=== PATIENT | male | born 1945 | race Caucasian/White ===

== ENCOUNTER → 2017-08-30 | Outpatient (CLI) | payer MEDICARE, BC | LOC: LAB 14:01 | DX: Z12.11 Encounter for screening for malignant neoplasm of colon (principal); Z72.0 Tobacco use ==

== ENCOUNTER → 2017-09-04 | Outpatient (CLI) | payer MEDICARE, BC | LOC: LAB 09:11 | DX: Z12.11 Encounter for screening for malignant neoplasm of colon (principal) ==

== ENCOUNTER → 2017-09-18 | Day surgery (SDC) | payer MEDICARE, BC | LOC: MSO 08:45 | DX: K21.9 Gastro-esophageal reflux disease without esophagitis (principal); K22.2 Esophageal obstruction; K44.9 Diaphragmatic hernia without obstruction or gangrene; K29.80 Duodenitis without bleeding; F17.210 Nicotine dependence, cigarettes, uncomplicated | CPT/HCPCS: 00740; A4649; C1726; J3010; J7120 ==

== ENCOUNTER 2018-01-04 10:50 | Emergency (ER) | payer MEDICARE, BC ==
[~2018-01-04] VITALS: Ht 188 cm; Wt 77.6 kg
[2018-01-04] MEDS ORDERED: GOOD SENSE ASPI81 M1 PO (10:59)
[2018-01-04] MEDS ORDERED: PROAIR HFA0.09 MG/AC IH (11:00)
[2018-01-04] MEDS ORDERED: PRILOSEC 20MG20 MG PO (11:10)
[2018-01-04 11:45] LABS: HEMATOCRIT 50.3 % (42.0-52.0); HEMOGLOBIN 16.3 g/dL (13.5-18.0); MEAN CELL VOLUME 96 fl (78-100); MEAN CORPUSCULAR HEMOGLOBIN 31 pg (27-31); MEAN CORPUSCULAR HGB CONC 32 g/dL (33-37); MEAN PLATELET VOLUME 9.4 fl (7.4-10.4); PLATELET COUNT 154 K/mm3 (130-400); RED BLOOD COUNT 5.26 M/mm3 (4.20-5.60); RED CELL DISTRIBUTION WIDTH 14.3 % (11.5-14.5); WHITE BLOOD COUNT 9.7 K/mm3 (4.8-10.8)
[2018-01-04 11:54] LABS: BAND 11 % (0-10); LYMPHOCYTE 5 % (20-51); MONOCYTE 9 % (3-10); NEUTROPHILS 75 % (42-75)
[2018-01-04 11:56] LABS: ALBUMIN 4.1 g/dL (3.5-5.0); BUN/CREATININE RATIO 15.1 (6.0-26.0); CALCIUM 8.4 mg/dL (8.4-10.2); POTASSIUM 4.2 mmol/L (3.6-5.0); TOTAL BILIRUBIN 0.6 mg/dL (0.2-1.3); TOTAL PROTEIN 7.9 g/dL (6.3-8.2)
[2018-01-04 15:12] VITALS: BP 111/62
== END 2018-01-04 14:46 | disposition short-term general hospital (02) ==
LOC: ED 10:50
PROVIDERS: Physician Assistant
DX: S06.320A Contusion and laceration of left cerebrum without loss of consciousness, initial encounter (principal); J10.1 Influenza due to other identified influenza virus with other respiratory manifestations; I95.9 Hypotension, unspecified; W19.XXXA Unspecified fall, initial encounter; I48.91 Unspecified atrial fibrillation; I25.10 Atherosclerotic heart disease of native coronary artery without angina pectoris; F17.210 Nicotine dependence, cigarettes, uncomplicated; K21.9 Gastro-esophageal reflux disease without esophagitis; J44.9 Chronic obstructive pulmonary disease, unspecified; Z79.82 Long term (current) use of aspirin
CPT/HCPCS: J7030

== ENCOUNTER → 2018-01-25 | Outpatient (CLI) | payer MEDICARE, BC ==
[2018-01-04 15:12] VITALS: BP 111/62
[~2018-01-25] MED LIST: GOOD SENSE ASPI81 M1 PO; PRILOSEC 20MG20 MG PO; PROAIR HFA0.09 MG/AC IH
== END ==
LOC: RAD 01-24 10:00
DX: I62.9 Nontraumatic intracranial hemorrhage, unspecified (principal)

== ENCOUNTER → 2018-10-12 | Outpatient (CLI) | payer MEDICARE, BC ==
[2018-10-12 12:33] LABS: BASO # 0.1 (0.02-0.10); EOS # 0.5 (0.04-0.40); HEMATOCRIT 47.2 % (42.0-52.0); HEMOGLOBIN 15.8 g/dL (13.5-18.0); LYMPH# 2.2 (1.50-4.00); MEAN CELL VOLUME 99 fl (78-100); MEAN CORPUSCULAR HEMOGLOBIN 33 pg (27-31); MEAN CORPUSCULAR HGB CONC 34 g/dL (33-37); MEAN PLATELET VOLUME 9.9 fl (7.4-10.4); MONO # 0.7 (0.20-0.80); NEU # 5.2 (1.40-6.50); PLATELET COUNT 209 K/mm3 (130-400); RED BLOOD COUNT 4.76 M/mm3 (4.20-5.60); RED CELL DISTRIBUTION WIDTH 13.2 % (11.5-14.5); WHITE BLOOD COUNT 8.7 K/mm3 (4.8-10.8)
[2018-10-12 12:55] LABS: EOS % 5.5 % (0.0-4.0)
[2018-10-12 13:21] LABS: ALBUMIN 4.1 g/dL (3.5-5.0); CALCIUM 8.9 mg/dL (8.4-10.2); TOTAL BILIRUBIN 0.8 mg/dL (0.2-1.3); TOTAL PROTEIN 7.3 g/dL (6.3-8.2)
== END ==
LOC: LAB 10:17
PROVIDERS: Family Medicine
DX: Z00.00 Encounter for general adult medical examination without abnormal findings (principal)

== ENCOUNTER → 2019-02-26 | Outpatient (CLI) | payer MEDICARE, BC | LOC: RAD 11:46 | DX: J44.9 Chronic obstructive pulmonary disease, unspecified (principal) ==

== ENCOUNTER → 2022-07-25 | Outpatient (CLI) | payer MEDICARE, BC ==
[2022-07-25 14:29] LABS: BASO # 0.04 K/mm3 (0.02-0.10); EOS # 0.38 K/mm3 (0.04-0.40); EOS % 4.4 % (0.0-4.0); HEMATOCRIT 45.2 % (42.0-52.0); HEMOGLOBIN 14.9 g/dL (13.5-18.0); LYMPH# 1.97 K/mm3 (1.50-4.00); MEAN CELL VOLUME 98 fl (78-100); MEAN CORPUSCULAR HEMOGLOBIN 32 pg (27-31); MEAN CORPUSCULAR HGB CONC 33 g/dL (33-37); MONO # 0.61 K/mm3 (0.20-0.80); NEU # 5.59 K/mm3 (1.40-6.50); PLATELET COUNT 171 K/mm3 (130-400); RED BLOOD COUNT 4.61 M/mm3 (4.20-5.60); WHITE BLOOD COUNT 8.6 K/mm3 (4.8-10.8)
[2022-07-25 14:39] LABS: ALBUMIN 3.9 g/dL (3.4-4.8); POTASSIUM 4.1 mmol/L (3.5-5.1)
[2022-07-25 14:40] LABS: CALCIUM 9.1 mg/dL (8.3-10.5)
[2022-07-25 14:41] LABS: TOTAL PROTEIN 7.2 g/dL (6.2-8.1)
[2022-07-25 14:43] LABS: TOTAL BILIRUBIN 1.1 mg/dL (0.2-1.2)
== END ==
LOC: LAB 14:13
PROVIDERS: Family Medicine
DX: Z00.00 Encounter for general adult medical examination without abnormal findings (principal); I25.10 Atherosclerotic heart disease of native coronary artery without angina pectoris; J44.9 Chronic obstructive pulmonary disease, unspecified; I95.1 Orthostatic hypotension; K21.9 Gastro-esophageal reflux disease without esophagitis; E78.5 Hyperlipidemia, unspecified; F17.200 Nicotine dependence, unspecified, uncomplicated